=== PATIENT | male | born 1995 | race Caucasian/White ===

== ENCOUNTER 2020-11-19 20:32 | Emergency (ER) | payer OTHER ==
[~2020-11-19] VITALS: Ht 180.3 cm; Wt 88.6 kg
[2020-11-19 23:06] LABS: BASO % 0.5 % (0.0-2.0); EOS # 0.3 (0.0-0.7); EOS % 2.9 % (0-4.0); GRAN # 4.9 (1.4-6.5); HEMATOCRIT 49.9 % (42.0-52.0); HEMOGLOBIN 16.6 g/dl (13.5-18.0); LYMPH # 2.7 (1.2-3.4); MEAN CELL VOLUME 86 fl (80.0-100.0); MEAN CORPUSCULAR HEMOGLOBIN 29 pg (27.0-31.0); MEAN CORPUSCULAR HGB CONC 33 g/dl (33.0-37.0); MEAN PLATELET VOLUME 10.7 fl (7.4-10.4); MONO # 0.9 (0.1-0.6); MONO % 10.4 % (1.7-9.3); PLATELET COUNT 253 K/mm3 (130-400); RED BLOOD COUNT 5.82 M/mm3 (4.20-5.60); REDCELL DISTRIBUTION WIDTH-CV 14.4 % (11.5-14.5)
[2020-11-19 23:13] LABS: PROTHROMBIN TIME 11.6 SECONDS (9.7-12.8)
[2020-11-19 23:17] LABS: D-DIMER < 200.00 ng/mLDDu (200-230)
[2020-11-19 23:41] VITALS: BP 139/64; PULSE 79; TEMP 98.2
== END 2020-11-19 23:42 | disposition home or self-care (01) ==
LOC: COL.ER 20:32
PROVIDERS: Nurse Practitioner
DX: M79.661 Pain in right lower leg (principal); Z86.718 Personal history of other venous thrombosis and embolism